=== PATIENT | male | born 1960 | race African-American/Black ===

== ENCOUNTER 2017-06-27 09:38 | Emergency (ER) | payer MEDICARE, OTHER ==
--- NOTE | 2017-06-27 09:53 | PDOC ---
History of Present Illness - General Stated Complaint: DIFFICULTY BREATHING Time Seen by Provider: 06/27/17 09:46 - History of Present Illness Initial Comments: 06/27/17 10:56 56yo man, active smoker, with PMH of asthma (s/p 2x intubations), depression/ anxiety who BIBEMS for respiratory distress. Patient reports increase unproductive cough for the past couple of days. No fever or chills. Last night he felt his chest "more tight", and a dry cough kept him up for most of the night. This morning he had increased chest tightness and dyspnea, and called EMS. He reports some CP that is worse with cough. No recent travel of sick contacts. No dysuria. Although he has a history of asthma, he does not take any medications regularly nor regularly see a physician. PMH: Reports being told that his "heart skips a beat sometimes." Allergies: NKDA PCP: can't remember name MEDS: none 06/27/17 15:48 Past History - Travel Traveled outside of the country in the last 30 days: No Close contact w/someone who was outside of country & ill: No - Past Medical History Allergies/Adverse Reactions: Allergies Allergy/AdvReac Type Severity Reaction Status Date / Time No Known Allergies Allergy Verified 06/27/17 09:54 Home Medications: Ambulatory Orders Albuterol Sulfate Inhaler - [Ventolin HFA Inhaler -] 1 - 2 inh PO Q4H #1 inhaler 06/27/17 Azithromycin [Zithromax 250mg Tablets -] 250 mg PO UTDICT #6 tab 06/27/17 Guaifenesin AC [Robitussin AC -] 5 ml PO QID PRN #60 ml MDD 20 mL 06/27/17 Prednisone [Deltasone -] 40 mg PO DAILY #8 tablet 06/27/17 *Physical Exam - Physical Exam General Appearance: Yes: Nourished HEENT: positive: Normal ENT Inspection Neck: positive: Supple Respiratory/Chest: positive: Other (positive airway entry, wheezing bilaterally) Cardiovascular: positive: Regular Rate Gastrointestinal/Abdominal: positive: Soft. negative: Tenderness Extremity: positive: Other (clubbing) Neurologic: positive: Fully Oriented, Alert, Other (CNII-XII grossly intact, not formally tested) Heart Score/ECG Review - ECG Impressions Normal ECG: No Comment:: 06/27/17 10:01 SR, rate 90, PACs with aberrant conduction, prolonged QT 460 ED Treatment Course - RADIOLOGY Radiology Studies Ordered: 06/27/17 12:26 CXR: A single view reveals no sign of infiltrate or failure. There is oxygen tubing, prominent knob, normal david and normal heart. The angles are sharp and the bones and soft tissues are intact. Acute process is not seen. There are no prior studies for comparison. Impression: No acute chest pathology. Medical Decision Making - Medical Decision Making 06/27/17 11:14 Patient s/p 10mg Decadron and 2x duonebs with improvement in respiratory status. pSaO2 97% on RA, RR 20, no accessory muscle use. Will continue duoneb treaments q20min and give Azithromycin 500mg. 06/27/17 15:50 Pt satting 95% on RA. Now receiving 4th duoneb treatment. 06/27/17 16:21 Satting 96% on RA with no accessory muscle use. Will give Robitussin for cough. 06/27/17 17:54 Overall, patient is doing well after 1 dose of Decadron and 4x Duoneb treatments. His oxygen saturation is 97-98% on RA with no accessory muscle use. Patient's vital signs are stable. He is tolerating food, and reports his breathing has improved. Patient is stable for discharge home. We will send a Rx for 5day course of Azithromycin and 5day course of steroids. Treatment plan was discussed with the patient, smoking cessation encouraged, and he was instructed to follow-up with his primary care physician. 06/27/17 18:06 *DC/Admit/Observation/Transfer Diagnosis at time of Disposition: Asthma exacerbation - Discharge Dispostion Disposition: HOME Condition at time of disposition: Stable Admit: No - Prescriptions Prescriptions: Albuterol Sulfate Inhaler - [Ventolin HFA Inhaler -] 1 - 2 inh PO Q4H #1 inhaler Azithromycin [Zithromax 250mg Tablets -] 250 mg PO UTDICT #6 tab Guaifenesin AC [Robitussin AC -] 5 ml PO QID PRN #60 ml MDD 20 mL PRN Reason: Cough Prednisone [Deltasone -] 40 mg PO DAILY #8 tablet - Referrals Referrals: Abbi Waters MD [Primary Care Provider] - - Patient Instructions Printed Discharge Instructions: DI for Acute Bronchitis Additional Instructions: Please make an appointment with your primary care physician within 1-2 weeks. NEW MEDICATIONS: -You are being prescribed a course of steroids. Your first dose will be tomorrow. Please take two tablets of Prednisone (20mg) by mouth every day starting tomorrow for the next five days. -Take Azithromycin (antibiotic) as directed starting tomorrow. -Take Albuterol inhaler 1-2 puffs every 4 hours as needed for cough/shortness of breath -Take Robitussin AC every 6 hours as needed for your cough Please return to the Emergency Department if you have new, worsening, or concerning symptoms. - Post Discharge Activity
[2017-06-27] MEDS ORDERED: ALBUTEROL SO4 2.5/IPRATROPIUM 0.5 INH SOL 3 ML VIAL.NEB. NEB ONE ×3 (09:55→11:01)
[2017-06-27] MEDS ORDERED: DEXAMETHASONE SOD PHOSPHATE 4 MG/1 ML VIAL ONE (09:57)
[2017-06-27 10:07] VITALS: TEMP 98; BMI 20.9
[2017-06-27] MEDS ORDERED: AZITHROMYCIN IVPB 500 MG in DEXTROSE 5%-WATER - 250 ML IVPB ONE (10:55)
[2017-06-27] MEDS ORDERED: ALBUTEROL SO4 2.5/IPRATROPIUM 0.5 INH SOL 3 ML VIAL.NEB. NEB SCH (11:00)
[2017-06-27] MEDS ORDERED: AZITHROMYCIN IVPB 250 ML IVPB ONE (11:01)
--- NOTE | 2017-06-27 11:04 | PDOC ---
Attending Attestation - Resident Resident Name: Swati Isaac - ED Attending Attestation I have performed the following: I have examined & evaluated the patient, The case was reviewed & discussed with the resident, I agree w/resident's findings & plan, Exceptions are as noted - HPI HPI: 56 yo M history asthma, smoking, depression/anxiety presents with wheezing, shortness of breath. He notes that he has had chest tightness for the past few days, associated with nonproductive cough. He does not typically have mucous production. He reports chest pain associated with the cough. No sick contacts, no travel. +Prior similar symptoms. Does not take any mecication for asthma, and does not regularly see his doctor. - Physicial Exam PE: GENERAL: Awake, alert, and fully oriented, in no acute distress HEAD: No signs of trauma EYES: PERRLA, EOMI, sclera anicteric, conjunctiva clear ENT: Auricles normal inspection, hearing grossly normal, nares patent, oropharynx clear without exudates. Moist mucosa NECK: Normal ROM, supple, no lymphadenopathy, JVD, or masses LUNGS: Dec air entry B/L, +exp wheezes B/L. +Tachypnea. HEART: Regular rate and rhythm, normal S1 and S2, no murmurs, rubs or gallops ABDOMEN: Soft, nontender, normoactive bowel sounds. No guarding, no rebound. No masses EXTREMITIES: Normal range of motion, no edema. No clubbing or cyanosis. No cords, erythema, or tenderness NEUROLOGICAL: Cranial nerves II through XII grossly intact. Normal speech, normal gait SKIN: Warm, Dry, normal turgor, no rashes or lesions noted. - Medical Decision Making Pt improved significantly with nebs and steroids. O2Sat has normalized. Patient ambulatory, tolerating PO. Cough improved with robitussin AC. Stable for DC home on a course of abx, steroids, and albuterol.
[2017-06-27] MEDS: ALBUTEROL SO4 2.5/IPRATROPIUM 0.5 INH SOL 3 ML VIAL.NEB. NEB SCH ×4 (14:47→15:31)
[2017-06-27] MEDS ORDERED: guaiFENesin 200 MG/10 ML 10 ML UNIT-DOSE CUPS PO ONE (16:26)
[2017-06-27] MEDS ORDERED: SODIUM CHLORIDE 1,000 ML IV STA (16:49)
[2017-06-27] MEDS ORDERED: guaiFENesin 200 MG/10 ML 10 ML UNIT-DOSE CUPS ONE (17:32)
[2017-06-27 18:30] VITALS: BP 108/63; PULSE 84
== END 2017-06-27 18:20 | disposition home or self-care (01) ==
LOC: JER 09:38
PROC: 3E0F7GC Introduction of Other Therapeutic Substance into Respiratory Tract, Via Natural or Artificial Opening (ICD-10-PCS; principal; 2017-06-27)
PROC: 3E0F7GC Introduction of Other Therapeutic Substance into Respiratory Tract, Via Natural or Artificial Opening (ICD-10-PCS; 2017-06-27)
PROC: 3E0F7GC Introduction of Other Therapeutic Substance into Respiratory Tract, Via Natural or Artificial Opening (ICD-10-PCS; 2017-06-27)
PROC: 3E0F7GC Introduction of Other Therapeutic Substance into Respiratory Tract, Via Natural or Artificial Opening (ICD-10-PCS; 2017-06-27)
DX: J45.901 Unspecified asthma with (acute) exacerbation (principal); F41.8 Other specified anxiety disorders; Z59.0 Homelessness
CPT/HCPCS: 71010-TC; 99283-25

== ENCOUNTER 2017-09-09 08:49 | Emergency (ER) | payer MEDICARE, OTHER ==
[2017-09-09] MEDS ORDERED: ASPIRIN 81 MG CHEWABLE TABLETS PO ONE (09:44)
--- NOTE | 2017-09-09 09:44 | PDOC ---
History of Present Illness - General History Source: Patient Exam Limitations: No Limitations <Marleni Aviles - Last Filed: 09/09/17 13:35> <Isra Mai - Last Filed: 09/10/17 08:02> - General Stated Complaint: CHEST PAIN Time Seen by Provider: 09/09/17 09:14 - History of Present Illness Initial Comments: 09/09/17 13:35 The patient is a 57-year-old male with a significant past medical history of asthma, (s/p 2x intubations), active smoker, depression, and anxiety, who presents to the emergency department with difficulty breathing since last night. He states this shortness of breath is lasting longer than usual. He also reports a mild productive cough with yellow sputum, mild runny nose, body aches , nausea, and constant mid-sternal chest pain that is sharp in nature when he coughs. He states his shortness of breath and chest pain is worsened upon inspiration and coughing. He states he usually uses his inhaler four times a day. The patient denies palpitations, leg swelling, headache and dizziness. The patient denies fever, chills, vomit, diarrhea and constipation. The patient denies dysuria, frequency, urgency and hematuria. Allergies: NKDA Social History: active smoker, no other toxic habits reported ( Marleni Aviles) Past History <Marleni Aviles - Last Filed: 09/09/17 13:35> - Past Medical History Asthma: Yes COPD: No Psychiatric Problems: Yes - Surgical History Abdominal Surgery: No Gastric Stapling: No - Suicide/Smoking/Psychosocial Hx Smoking History: Current every day smoker Hx Alcohol Use: Yes Drug/Substance Use Hx: No <Isra Mai - Last Filed: 09/10/17 08:02> - Past Medical History Allergies/Adverse Reactions: Allergies Allergy/AdvReac Type Severity Reaction Status Date / Time No Known Allergies Allergy Verified 09/09/17 10:51 Home Medications: Ambulatory Orders Guaifenesin AC [Robitussin AC -] 5 ml PO QID PRN #60 ml MDD 20 mL 06/27/17 Prednisone [Deltasone -] 40 mg PO DAILY #8 tablet 06/27/17 Albuterol Sulfate Inhaler - [Ventolin HFA Inhaler -] 1 - 2 inh PO Q4H PRN #1 inhaler 09/09/17 Azithromycin 250 mg PO DAILY #6 tablet 09/09/17 Prednisone [Deltasone -] 40 mg PO DAILY #8 tablet 09/09/17 Review of Systems - Review of Systems Able to Perform ROS?: Yes <Marleni Aviles - Last Filed: 09/09/17 13:35> <Isra Mai - Last Filed: 09/10/17 08:02> - Review of Systems Comments:: 09/09/17 13:35 CONSTITUTIONAL: No reported: Fever, Chills, Diaphoresis, Generalized Weakness, Malaise, Loss of Appetite HEENT: (+) Rhinorrhea No reported: Nasal Congestion, Throat Pain, Throat Swelling, Difficulty Swallowing, Mouth Swelling, Ear Pain, Eye Pain, Visual Changes CARDIOVASCULAR: (+) Chest Pain No reported: Syncope, Palpitations, Irregular Heart Rate, Lightheadedness, Peripheral Edema RESPIRATORY: (+) Shortness of Breath, (+) cough No reported: SOB with Exertion, Orthopnea, Wheezing, Stridor, Hemoptysis GASTROINTESTINAL: (+) Nausea No reported: Abdominal pain, Abdominal Distension, Vomiting, Diarrhea, Constipation, Melena, Hematochezia GENITOURINARY: No reported: Dysuria, Frequency, Urgency, Hesitancy, Flank Pain, Genital Pain MUSCULOSKELETAL: No reported: Joint Swelling, Back pain, Neck Pain SKIN: No reported: Rash, Itching, Pallor HEMEATOLOGIC/IMMUNOLOGIC: No reported: Easy Bleeding, Easy Bruising, Lymphadenopathy, Frequent infections ENDOCRINE: No reported: Unexplained Weight Gain, Unexplained Weight Loss, Heat Intolerance , Cold Intolerance NEUROLOGIC: No reported: Headache, Focal Weakness, Paresthesias, Vertigo, Lightheadedness, Unsteady Gait, Seizure, Mental Status Changes, Incontinence PSYCHIATRIC: No reported: Anxiety, Depression (Marleni Aviles) *Physical Exam <Marleni Aviles - Last Filed: 09/09/17 13:35> <Isra Mai - Last Filed: 09/10/17 08:02> - Vital Signs Last Vital Signs Temp Pulse Resp BP Pulse Ox 99.3 F 55 L 18 145/83 98 09/09/17 08:50 09/09/17 12:50 09/09/17 08:50 09/09/17 12:50 09/09/17 12:50 - Physical Exam Comments: 09/09/17 13:35 GENERAL: The patient is awake, alert, and fully oriented, Nontoxic - in no acute distress. HEAD: Normocephalic, atraumatic. EYES: extraocular movements intact, sclera anicteric, conjunctiva clear. ENT: Normal voice, Moist mucous membranes. NECK: Normal range of motion, supple LUNGS: (+) Wheezing bilaterally with more rhonchi in left lung. No rales. HEART: Regular rate and rhythm, without murmur, rub or gallop. ABDOMEN: Soft, nontender, normoactive bowel sounds. No guarding, no rebound.No CVA tenderness EXTREMITIES: Normal range of motion, no edema. No clubbing or cyanosis. No cords, erythema, or tenderness. Negative Marsha's sign. NEUROLOGICAL: No facial assymetry, Normal speech, PSYCH: Normal mood, normal affect. SKIN: Warm, Dry, normal turgor, (Aviles,Marleni) Heart Score/ECG Review <Ciera Avilesnda - Last Filed: 09/09/17 13:35> <Isra Mai - Last Filed: 09/10/17 08:02> - ECG Impressions Comment:: 09/09/17 17:53 Twelve-lead EKG was performed and reviewed by me. ekg from 9:11am There is normal sinus rhythm with a normal rate. rate of 93 PVCs present QTc interval (Isra Mai) ED Treatment Course - LABORATORY CBC & Chemistry Diagram: 09/09/17 10:47 09/09/17 10:47 <Ciera Avilesnda - Last Filed: 09/09/17 13:35> - LABORATORY CBC & Chemistry Diagram: 09/09/17 10:47 09/09/17 10:47 <Isra Mai - Last Filed: 09/10/17 08:02> - ADDITIONAL ORDERS Additional order review: 09/09/17 10:47 Influenza Types A,B Antigen (VIVIAN) - Final Nasopharyngeal Swab - Final 09/09/17 10:47 RBC 4.70 MCV 90.1 MCHC 33.9 RDW 15.6 MPV 8.6 Neutrophils % 63.5 Lymphocytes % 21.7 Monocytes % 13.2 H Eosinophils % 0.2 Basophils % 1.4 - RADIOLOGY Radiology Studies Ordered: Category Date Time Status CHEST PA & LAT [RAD] Stat Radiology 09/09/17 09:44 Completed - Medications Given in the ED: ED Medications Discontinued Medications Generic Name Dose Route Start Last Admin Trade Name Tara PRN Reason Stop Dose Admin Albuterol Sulfate 1 amp 09/09/17 09:54 09/09/17 10:35 Ventolin 0.083% Nebulizer Soln - NEB 09/09/17 09:55 1 amp ONCE ONE Administration Aspirin 162 mg 09/09/17 09:44 09/09/17 10:30 Asa - PO 09/09/17 09:45 162 mg ONCE ONE Administration Ibuprofen 400 mg 09/09/17 13:23 09/09/17 13:55 Motrin - PO 09/09/17 13:24 400 mg ONCE ONE Administration Prednisone 60 mg 09/09/17 13:29 09/09/17 13:55 Deltasone - PO 09/09/17 13:30 60 mg ONCE ONE Administration Medical Decision Making <Marleni Aviles - Last Filed: 09/09/17 13:35> <Isra Mai - Last Filed: 09/10/17 08:02> - Medical Decision Making 09/09/17 09:57 57y M hx of asthma/COPD presents with sharp chest pain, cough productive of yellowish suputm since yesterday without associated fevers. No associated leg swelling, calf tenderness, hemoptysis. on exam pt in no distrses wheezing with some assymetrical rhonchi on exam ddx includes acs, pna, bronchitis, influenza consider PE, but wells criteria low risk will ck xray to r/o pna will place media monitor will obtain labs, trop will reassess 09/09/17 13:23 pts labs reviewed cxr unremarkable w/o infiltrate suspect COPD exacerbation will tx with azithromycin, steroids will have pt fu with PMD I discussed the physical exam findings, ancillary test results and final diagnoses with the patient. I answered all of the patient's questions. The patient was satisfied with the care received and felt comfortable with the discharge plan and treatment plan. The patient will call their primary care physician within 24 hours to arrange follow-up and will return to the Emergency Department with any new, persistent or worsening symptoms. (Isra Mai) *DC/Admit/Observation/Transfer <Marleni Aviles - Last Filed: 09/09/17 13:35> - Discharge Dispostion Admit: No <PauIsra - Last Filed: 09/10/17 08:02> Diagnosis at time of Disposition: COPD exacerbation - Discharge Dispostion Disposition: HOME Condition at time of disposition: Improved - Prescriptions Prescriptions: Albuterol Sulfate Inhaler - [Ventolin HFA Inhaler -] 1 - 2 inh PO Q4H PRN #1 inhaler PRN Reason: Shortness Of Breath Azithromycin 250 mg PO DAILY #6 tablet Prednisone [Deltasone -] 40 mg PO DAILY #8 tablet - Referrals Referrals: Abbi Waters MD [Staff Physician] - - Patient Instructions Printed Discharge Instructions: DI for Chronic Obstructive Pulmonary Disease, DI for Atypical Chest Pain Additional Instructions: Return to the emergency department immediately with ANY new, persistent or worsening symptoms. take the medications as prescribed. You MUST call and follow up with your doctor tomorrow for further evaluation of your symptoms. Results were discussed with you. Please make sure your doctor reviews the results of your emergency evaluation. Print Language: KISWAHILI - Attestations Scribe Attestion: 09/09/17 13:36 Documentation prepared by Marleni Aviles, acting as medical typist for Isra Mai MD, /DO. (Marleni Aviles)
[2017-09-09] MEDS ORDERED: ALBUTEROL SO4 0.083% IH SOL 2.5 MG/3 ML VIAL.NEB. NEB ONE ×2 (09:54→10:06)
[2017-09-09 10:05] VITALS: TEMP 99.3; BMI 21.6
[2017-09-09] MEDS ORDERED: ASPIRIN 81 MG CHEWABLE TABLETS ONE (10:06)
[2017-09-09 11:02] LABS: BASO % 1.4 % (0-2.0); EOS % 0.2 % (0-4.5); HEMATOCRIT 42.3 % (35.4-49); HEMOGLOBIN 14.3 GM/dL (11.7-16.9); LYMPH % 21.7 % (8-40); MCH 30.5 pg (25.7-33.7); MCHC 33.9 g/dl (32.0-35.9); MEAN CELL VOLUME 90.1 fl (80-96); MEAN PLT VOLUME 8.6 fl (7.5-11.1); MONO % 13.2 % (3.8-10.2); NEUT % 63.5 % (42.8-82.8); PLATELET COUNT 222 K/MM3 (134-434); RDW 15.6 % (11.9-15.9); WHITE BLOOD COUNT 5.2 K/mm3 (4.0-10.0)
[2017-09-09 11:29] LABS: ALBUMIN 4.3 g/dl (3.4-5.0); ANION GAP 11 (8-16); BILIRUBIN,TOTAL 1.2 mg/dL (0.2-1.0); BLOOD UREA NITROGEN 8 mg/dL (7-18); CALCIUM 9.3 mg/dL (8.5-10.1); CHLORIDE 99 mmol/L (98-107); CO2 26 mmol/L (21-32); CREATININE 0.7 mg/dL (0.7-1.3); GLUCOSE,RANDOM 100 mg/dL (74-106); MAGNESIUM 1.5 mg/dL (1.8-2.4); POTASSIUM 3.6 mmol/L (3.5-5.1); SGOT/AST 35 U/L (15-37); SGPT/ALT 29 U/L (12-78); SODIUM 136 mmol/L (136-145); TOT PROT 8.1 g/dl (6.4-8.2)
[2017-09-09 11:31] LABS: ALK PHOS 132 U/L (45-117)
[2017-09-09 11:32] LABS: INR 0.91 (0.82-1.09); PROTHROMBIN TIME (PATIENT) 10.3 SEC (9.98-11.88)
--- NOTE | 2017-09-09 12:42 | EKG ---
Test Reason : Blood Pressure : / mmHG Vent. Rate : 093 BPM Atrial Rate : 093 BPM P-R Int : 138 ms QRS Dur : 080 ms QT Int : 474 ms P-R-T Axes : 044 001 067 degrees QTc Int : 589 ms SINUS RHYTHM WITH FREQUENT PREMATURE VENTRICULAR COMPLEXES PROLONGED QT ABNORMAL ECG NO PREVIOUS ECGS AVAILABLE Confirmed by JULIAN ADAN, LIZZY ([id number]) on 09/09/2017 12:41:59 PM Referred By: Confirmed By:LIZZY JORDAN MD
[2017-09-09] MEDS ORDERED: IBUPROFEN 400 MG TABLET (FP) PO ONE ×2 (13:23→13:59)
[2017-09-09] MEDS ORDERED: predniSONE 20 MG TABLET (UD) PO ONE (13:29)
[2017-09-09] MEDS ORDERED: predniSONE 20 MG TABLET (UD) ONE (13:58)
[2017-09-09 14:14] VITALS: BP 145/83; PULSE 55
== END 2017-09-09 14:05 | disposition home or self-care (01) ==
LOC: JER 08:49
PROC: 3E0F7GC Introduction of Other Therapeutic Substance into Respiratory Tract, Via Natural or Artificial Opening (ICD-10-PCS; principal; 2017-09-09)
DX: J44.1 Chronic obstructive pulmonary disease with (acute) exacerbation (principal); J45.909 Unspecified asthma, uncomplicated; F41.8 Other specified anxiety disorders; F17.210 Nicotine dependence, cigarettes, uncomplicated
CPT/HCPCS: 36415; 71046-TC-FY; 80053; 82550; 82553; 83735; 84484; 85025; 85610; 87804; 93005; 93010; 94640; 99284-25